=== PATIENT | male | born 1970 | race Caucasian/White ===

== ENCOUNTER 2022-02-04 08:12 | Outpatient (RCR) | payer OTHER | END 2022-02-14 | disposition still patient (30) | LOC: WSOH | DX: S86.111D Strain of other muscle(s) and tendon(s) of posterior muscle group at lower leg level, right leg, subsequent encounter (principal); K21.9 Gastro-esophageal reflux disease without esophagitis; Y99.0 Civilian activity done for income or pay ==

== ENCOUNTER 2022-02-16 12:57 | Outpatient (RCR) | payer OTHER | END 2022-03-17 | disposition home or self-care (01) | LOC: WSOH | DX: S86.111D Strain of other muscle(s) and tendon(s) of posterior muscle group at lower leg level, right leg, subsequent encounter (principal); Y99.0 Civilian activity done for income or pay; K21.9 Gastro-esophageal reflux disease without esophagitis ==